=== PATIENT | female | born 1995 | race Asian ===

== ENCOUNTER 2017-08-18 12:07 | Emergency (ER) | payer OTHER ==
[~2017-08-18] VITALS: Ht 152.4 cm; Wt 57.0 kg
[2017-08-18 12:08] VITALS: BP 138/89; PULSE 89; RESP 16; TEMP 98.9; O2SAT 99
[2017-08-18] MEDS ORDERED: NORE1TAB74 PO (12:33)
--- NOTE | 2017-08-18 12:47 | PD ---
HPI . Upper respiratory symptoms Chief Complaint: Cold / Flu Symptoms Time Seen by Provider: 12:34 Travel History International Travel<30 days: No Contact w/Intl Traveler<30days: No Traveled to known affect area: No History of Present Illness HPI 22-year-old female presents emergency department for evaluation of upper respiratory symptoms. Patient states she has been coughing, has a sore throat, runny nose, loss of voice 4-5 days. Patient denies any fevers, chills, malaise. Patient denies any nausea, vomiting, diarrhea, chest pain, shortness breath. Patient denies any major medical history. 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 Patient states her roommate has the same symptoms she has. Patient doesn't take any daily medication but does take a daily control pill. PFSH Past Medical History Medical History: Denies Significant Hx Influenza Vaccination: Yes ?: Not LMP: 08/18/2017 Past Surgical History Surgical History: No Previous Surgery Social History Alcohol Use: No Tobacco Use: No Substance Use: No Allergies-Medications (Allergen,Severity, Reaction): Coded Allergies: No Known Allergies (Unverified , 08/18/17) Reported Meds & Prescriptions Reported Meds & Active Scripts Active Reported Blisovi Fe 10/12 (Norethindrone-Ethinyl Estradiol-Fe) 1-20 Mg-Mcg Tab 1 Tab PO DAILY Review of Systems Except as stated in HPI: all other systems reviewed are Neg Physical Exam Narrative GENERAL: Well-nourished, well-developed 22-year-old female patient in no acute distress. Nontoxic appearing. SKIN: Focused skin assessment warm/dry. HEAD: Normocephalic. Atraumatic. EYES: No scleral icterus. No injection or drainage. ENT: Mucosa pink and moist. No erythema or exudates. No uvular edema. No uvular , palatal, or tonsillar deviation. Airway patent. Nasal turbinates appear normal without nasal blood, purulent drainage or septal hematoma. THROAT: Mild pharyngeal injection, No exudates, or tonsillar hypertrophy. Airway is patent. NECK: Supple, trachea midline. No JVD or lymphadenopathy. CARDIOVASCULAR: Regular rate and rhythm without murmurs, gallops, or rubs. RESPIRATORY: Breath sounds equal bilaterally. No accessory muscle use. GASTROINTESTINAL: Abdomen soft, non-tender, nondistended. MUSCULOSKELETAL: No cyanosis, or edema. Data Data Last Documented VS Vital Signs Date Time Temp Pulse Resp B/P (MAP) Pulse Ox O2 Delivery O2 Flow Rate FiO2 08/18/17 12:08 98.9 89 16 138/89 (105) 99 Orders Orders Influenzae A/B Antigen (08/18/17 12:28) Chest, Pa & Lat (08/18/17 12:28) MDM Medical Decision Making Medical Screen Exam Complete: Yes Emergency Medical Condition: Yes Differential Diagnosis Differential diagnoses include but not limited to pharyngitis, URI, laryngitis, bronchitis, influenza Narrative Course 22-year-old female patient presents emergency department for evaluation of upper respiratory symptoms 4-5 days. Chest x-ray and influenza ordered and pending. Chest x-ray shows no acute findings and influenza is negative. Patient physical exam patient's findings are consistent with laryngitis due to her loss of voice and upper respiratory infection. Patient will be discharged home with supportive care instructions and to follow-up with her primary care physician or return to the emergency Department with any worsening condition. Diagnosis Primary Impression: Laryngitis Additional Impression: Upper respiratory infection Qualified Codes: J06.9 - Acute upper respiratory infection, unspecified Referrals: Primary Care Physician Patient Instructions: General Instructions, Laryngitis (ED), Upper Respiratory Infection (ED) Additional Instructions: Please return to emergency department if your symptoms return or worsen. Follow up with your primary care provider. Supportive care, stay hydrated, get enough rest, diet as tolerated. Alternate ibuprofen and Tylenol as needed for pain or fevers. Hot tea and honey can be soothing. Disposition: 01 DISCHARGE HOME Condition: Stable MavisMonet desai Candy SWENSON Aug 18, 2017 12:47
--- NOTE | 2017-08-18 13:05 | RADRPT ---
EXAM DATE/TIME: 08/18/2017 12:57 [facility] COMPARISON: No previous studies available for comparison. INDICATIONS : Cough and congestion. MEDICAL HISTORY : None. SURGICAL HISTORY : None. ENCOUNTER: Initial ACUITY: 4 - 6 days PAIN SCORE: 0/10 LOCATION: Bilateral chest FINDINGS: PA and lateral views of the chest demonstrate the lungs to be symmetrically aerated without evidence of mass, infiltrate or effusion. The cardiomediastinal contours are unremarkable. Osseous structure s are intact. CONCLUSION: No acute cardiopulmonary disease. Blayne Dodd MD on August 18, 2017 at 13:03 Board Certified Radiologist. This report was verified electronically.
== END 2017-08-18 14:33 | disposition home or self-care (01) ==
LOC: NEPD 12:07
DX: J04.0 Acute laryngitis (principal)
CPT/HCPCS: 71020; 87804; 99284